=== PATIENT | male | born 1975 | race Two or more races ===

== ENCOUNTER 2018-08-19 16:52 | Emergency (ER) | payer OTHER ==
--- NOTE | 2018-08-19 18:50 | EDPHY ---
General Time Seen by Provider: 08/19/18 18:47 Narrative: CLINICAL IMPRESSION: Abdominal pain, nausea and vomiting ASSESSMENT/PLAN: Patient is a 42-year-old male with no significant medical history who presents to the Emergency Department with sudden-onset abdominal pain with associated nausea and vomiting. Patient is afebrile, he is very uncomfortable appearing however not toxic-appearing. An ECG was obtained and revealed normal sinus rhythm without evidence of acute ischemia, reviewed by myself and Dr. Rico. Troponin 0. His abdominal exam reveals a mildly distended abdomen, diffuse tenderness to palpation however most tender in the epigastrium and left mid quadrant. His vital signs were reviewed, he was mildly hypertensive on arrival however his heart rate was in normal limits without evidence of sepsis. Lactate was 2.3, suspect this is secondary to his nausea, vomiting and dehydration. CBC revealed a leukocytosis of 16,000. BMP with no evidence of metabolic abnormality or acute kidney injury. Lipase and hepatic panel grossly unremarkable without evidence of acute pancreatitis, acute hepatitis or acute hepatobiliary obstruction. CT abdomen and pelvis revealed a dilated appendix at 9 mm, appeared hyperemic with some periappendiceal stranding consistent with acute appendicitis. Dr. Saucedo with General surgery was consulted, he evaluated this patient in the emergency department and felt that his symptoms were more consistent with gastritis. The patient was given Pepcid and Toradol with improvement of his symptoms in the ED. Dr. Saucedo recommended discharge with close follow-up with him tomorrow. There were no findings to suggest other etiologies to include but not limited to ACS, acute cholecystitis, acute pancreatitis, diverticulitis, obstruction, perforation, mesenteric ischemia or kidney stone. In light of CT findings concerning for acute appendicitis very conservative return precautions were discussed with the patient, he is to return for development of fever, persistent nausea and vomiting, localizing or worsening abdominal pain or for any other concerning symptom. On repeat examination and prior to discharge the patient is much more comfortable appearing, his abdomen is soft with diffuse nonfocal tenderness to palpation, no evidence of a surgical abdomen. Patient verbalizes understanding and he is in agreement with this plan DIFFERENTIAL DX: Epigastric pain including but not limited to biliary colic, cholecystitis, peptic ulcer disease, pancreatitis, and gastroenteritis. ED COURSE: 1900: Case discussed with Dr. Rico 2116: Case discussed with Dr. Bautista, CT with findings suggestive of acute appendicitis. Appendix is dilated at 9 mm it is hyperemic with stranding. 2118: Case discussed with Dr. Saucedo, he will evaluate this patient. 2134: On repeat exam the patient is uncomfortable appearing, he is declining any pain medications at this time. His abdomen is soft. He is most tender in the left upper quadrant. 2139: Patient evaluated by Dr. Saucedo, he would like to trial Pepcid and Toradol. He will re-evaluate this patient prior to disposition. 2244: On repeat exam the patient reports feeling marginally better. Does not feel comfortable going home at this time. 2258: Dr. Saucedo would like to re-evaluate this patient prior to admitting CHIEF COMPLAINT: Abdominal pain, nausea and vomiting HPI: Patient is a 42-year-old male with no significant medical history who presents to the Emergency Department with a sudden-onset epigastric pain that has been constant since 929 this morning. Patient describes it as aching in nature, radiating to his left upper abdomen. His pain is unrelieved and is worsened with movement and palpation. He has not tried taking anything for pain. He has had associated nausea throughout the day, emesis x3. Denies any hematemesis. He denies any chest pain or shortness of breath. He denies any urinary symptoms to include dysuria, hematuria or frequency. He has no testicular pain or swelling. He denies any flank or back pain. His appetite has been low secondary to the nausea, denies any fevers or chills. There been no sick contacts, no recent antibiotic use. Had a normal bowel movement this morning, no melena or hematochezia. No history of abdominal surgeries. No history of similar episodes in the past. PMH: Denies Pertinent Past Surgical History: Right shoulder surgery. Family History: Not contributory Social History: Denies smoking, rare alcohol and denies illicit drug use. REVIEW OF SYSTEMS: All other systems negative Constitutional: Decreased appetite. No fever, no chills. Eyes: No discharge, vision change ENT: No sore throat, congestion, ear pain. Cardiovascular: No chest pain, no palpitations. Respiratory: No cough, no shortness of breath. Gastrointestinal: Nausea, vomiting, abdominal pain. No constipation or diarrhea. Genitourinary: No hematuria, dysuria, flank pain, testicular pain. Musculoskeletal: No back pain, joint swelling, joint pain, myalgias. Skin: No rashes, color change. Neurological: No headache, dizziness, weakness. PHYSICAL EXAM: General Appearance: Well-developed, uncomfortable appearing however not toxic- appearing. HENT: Normocephalic, atraumatic. Bilateral external ears are normal. Bilateral tympanic membranes are normal with pearly rudolph reflex. Nares are clear, mucosa is pink. Oropharynx is clear, oropharynx is mildly dry, uvula is midline. There is no tonsillar enlargement or exudate. The dentition is normal. Eyes: PERRLA, EOMI intact. Conjunctiva pink, no pallor or injection. Neck: Supple, nontender, no lymphadenopathy, no midline pain, FROM, no meningismus. Respiratory: There are no retractions, lungs are clear to auscultation. Cardiac: Regular rate and rhythm, no murmurs or gallops. Gastrointestinal: Patient's abdomen is mildly distended. There are no abdominal incisions noted. His abdomen is soft, he is he has generalized tenderness to palpation however he is most tender in the epigastrium and left lower mid quadrant on my exam with mild voluntary guarding. No masses or hernias are appreciated. Bowel sounds are present. Neurological: Alert and oriented x 3, CN 2-12 grossly intact, normal gait no ataxia, DTR's intact, normal sensation and strength Skin: Warm, dry, no rashes, no nodules on palpation. Musculoskeletal: Extremities are symmetrical, full range of motion, no tenderness, deformity, swelling, or erythema. Psychiatric: Patient is oriented X 3, there is no agitation. MEDICAL DECISION MAKING: Patient was seen independently. Secondary supervising physician at time of evaluation was Dr. Rico, he did not evaluate this patient. Diagnosis: Abdominal pain, nausea and vomiting. New, requires workup Summary: See Assessment and Plan for summary of ED visit Clinical lab tests: ordered / reviewed. Independent visualization of images, tracing, or specimens: Yes. Decision to obtain medical records or history from someone other than the patient: Yes, Review / Summarize previous medical records: Yes Discussed patient with another provider: Yes, Dr. Rico and Dr. Saucedo Patient Progress: Stable, discharged. - Diagnostics Imaging Results: Imaging Impressions Abdomen CT 08/19/18 18:59 Impression: 1. Mildly enlarged hyperemic appendix, with trace periappendiceal stranding, suspicious for acute appendicitis. 2. Equivocal fold thickening in the proximal small bowel, which can be seen with enteritis or underdistention, with limited bowel assessment due to lack of oral contrast. 3. Left adrenal myelolipoma. 4. Indeterminate hypodensity in the right kidney, [id number]. 5. Additional findings, as above. Findings called to the ED on August 19, 2018 at 2114. - History Smoking Status: Never smoked - Objective Vital Signs: Initial Vital Signs Temperature (C) 36.7 C 08/19/18 17:08 Heart Rate 78 08/19/18 17:08 Respiratory Rate 18 08/19/18 17:08 Blood Pressure 147/110 H 08/19/18 17:08 O2 Sat (%) 99 08/19/18 17:08 O2 Delivery Mode Room Air Allergies/Adverse Reactions: No Known Allergies Allergy (Verified 08/19/18 17:07) Home Medications: Medication Instructions Recorded Ondansetron Odt [Zofran Odt] 4 mg PO Q8 PRN #10 tab 08/19/18 Laboratory Results: Laboratory Results 08/19/18 19:01 08/19/18 19:01 08/19/18 08/19/18 08/19/18 21:38 19:34 19:25 WBC RBC Hgb POC Hgb 16.7 gm/dL gm/dL (13.7-17.5) Hct POC Hct 49 % % (40-51) MCV MCH MCHC RDW Plt Count MPV Neut % (Auto) Lymph % (Auto) Adair % (Auto) Eos % (Auto) Baso % (Auto) Nucleat RBC Rel Count Absolute Neuts (auto) Absolute Lymphs (auto) Absolute Monos (auto) Absolute Eos (auto) Absolute Basos (auto) Absolute Nucleated RBC Immature Gran % Immature Gran # POC Blood Source VENOUS Patient Temperature 36.7 DEGREES DEGREES POC VBG pH 7.44 H (7.31-7.42) POC VBG pCO2 34 mmHg L mmHg (40-44) POC VBG pO2 41 mmHg H mmHg (35-40) POC VBG HCO3 23 mEq/L mEq/L (22-26) POC VBG Total CO2 24 mEq/L mEq/L (21-27) POC VBG Base Excess -1.0 mEq/L mEq/L (-2.5-2.5) VBG Lactic Acid 1.6 mmol/L mmol/L (0.7-2.1) POC Mix VBG O2 Sat 79 % H % (65-75) POC Sodium 141 mEq/L mEq/L (135-145) Sodium POC Potassium 3.6 mEq/L mEq/L (3.3-5.0) Potassium POC Chloride 103 mEq/L mEq/L (97-110) Chloride Carbon Dioxide POC Total CO2 24 mEq/L mEq/L (22-31) Anion Gap POC BUN 18 mg/dL mg/dL (7-23) BUN Creatinine POC Creatinine 0.9 mg/dL mg/dL (0.7-1.3) Estimated GFR Glucose POC Glucose 144 mg/dL H mg/dL (70-100) POC Lactic Acid Frank 2.3 mmol/L H mmol/L (0.7-2.1) Calcium Total Bilirubin Conjugated Bilirubin Unconjugated Bilirubin AST ALT Alkaline Phosphatase POC Troponin I Total Protein Albumin Lipase 08/19/18 08/19/18 08/19/18 19:05 19:01 19:01 WBC 16.12 10^3/uL H 10^3/uL (3.80-9.50) RBC 5.94 10^6/uL 10^6/uL (4.40-6.38) Hgb 16.5 g/dL g/dL (13.7-17.5) POC Hgb Hct 49.1 % % (40.0-51.0) POC Hct MCV 82.7 fL fL (81.5-99.8) MCH 27.8 pg L pg (27.9-34.1) MCHC 33.6 g/dL g/dL (32.4-36.7) RDW 12.7 % % (11.5-15.2) Plt Count 264 10^3/uL 10^3/uL (150-400) MPV 11.5 fL fL (8.7-11.7) Neut % (Auto) 85.3 % H % (39.3-74.2) Lymph % (Auto) 9.8 % L % (15.0-45.0) Adair % (Auto) 4.1 % L % (4.5-13.0) Eos % (Auto) 0.1 % L % (0.6-7.6) Baso % (Auto) 0.3 % % (0.3-1.7) Nucleat RBC Rel Count 0.0 % % (0.0-0.2) Absolute Neuts (auto) 13.74 10^3/uL H 10^3/uL (1.70-6.50) Absolute Lymphs (auto) 1.58 10^3/uL 10^3/uL (1.00-3.00) Absolute Monos (auto) 0.66 10^3/uL 10^3/uL (0.30-0.80) Absolute Eos (auto) 0.02 10^3/uL L 10^3/uL (0.03-0.40) Absolute Basos (auto) 0.05 10^3/uL 10^3/uL (0.02-0.10) Absolute Nucleated RBC 0.00 10^3/uL 10^3/uL (0-0.01) Immature Gran % 0.4 % % (0.0-1.1) Immature Gran # 0.07 10^3/uL 10^3/uL (0.00-0.10) POC Blood Source Patient Temperature POC VBG pH POC VBG pCO2 POC VBG pO2 POC VBG HCO3 POC VBG Total CO2 POC VBG Base Excess VBG Lactic Acid POC Mix VBG O2 Sat POC Sodium Sodium 135 mEq/L mEq/L (135-145) POC Potassium Potassium 3.8 mEq/L mEq/L (3.5-5.2) POC Chloride Chloride 101 mEq/L mEq/L (97-110) Carbon Dioxide 23 mEq/l mEq/l (22-31) POC Total CO2 Anion Gap 11 mEq/L mEq/L (6-14) POC BUN BUN 19 mg/dL mg/dL (7-23) Creatinine 0.9 mg/dL mg/dL (0.7-1.3) POC Creatinine Estimated GFR > 60 Glucose 141 mg/dL H mg/dL (70-100) POC Glucose POC Lactic Acid Frank Calcium 9.7 mg/dL mg/dL (8.5-10.4) Total Bilirubin 0.6 mg/dL mg/dL (0.1-1.4) Conjugated Bilirubin 0.3 mg/dL mg/dL (0.0-0.5) Unconjugated Bilirubin 0.3 mg/dL mg/dL (0.0-1.1) AST 24 IU/L IU/L (17-59) ALT 57 IU/L IU/L (21-72) Alkaline Phosphatase 88 IU/L IU/L (38-126) POC Troponin I 0.00 ng/mL ng/mL (0.00-0.08) Total Protein 7.6 g/dL g/dL (6.3-8.2) Albumin 4.5 g/dL g/dL (3.5-5.0) Lipase 49 IU/L IU/L (23-300) Medications Given: Discontinued Medications Hydromorphone HCl (Dilaudid) 0.5 mg IVP EDNOW ONE Stop: 08/19/18 18:59 Last Admin: 08/19/18 19:09 Dose: 0.5 mg Sodium Chloride (Ns) 1,000 mls @ 0 mls/hr IV EDNOW ONE; Wide Open PRN Reason: Protocol Stop: 08/19/18 18:59 Last Admin: 08/19/18 19:09 Dose: 1,000 mls Sodium Chloride (Ns) 1,000 mls @ 0 mls/hr IV ONCE ONE PRN Reason: Wide Open Stop: 08/19/18 19:32 Last Admin: 08/19/18 19:38 Dose: 1,000 mls Famotidine/Sodium Chloride (Pepcid 20 Mg (Premix)) 50 mls @ 200 mls/hr IV EDNOW ONE Stop: 08/19/18 21:54 Last Admin: 08/19/18 22:42 Dose: 50 mls Ketorolac Tromethamine (Toradol) 30 mg IVP EDNOW ONE Stop: 08/19/18 21:41 Last Admin: 08/19/18 22:41 Dose: 30 mg Ondansetron HCl (Zofran Odt 4 Mg Prepack#2) 1 btl ABENA GARNER ONE Stop: 08/19/18 23:32 Last Admin: 08/19/18 23:51 Dose: 1 btl Point of Care Test Results: Chemistry 08/19/18 08/19/18 19:34 19:05 POC Sodium 141 mEq/L mEq/L (135-145) POC Potassium 3.6 mEq/L mEq/L (3.3-5.0) POC Chloride 103 mEq/L mEq/L (97-110) POC Total CO2 24 mEq/L mEq/L (22-31) POC BUN 18 mg/dL mg/dL (7-23) POC Creatinine 0.9 mg/dL mg/dL (0.7-1.3) POC Glucose 144 mg/dL H mg/dL (70-100) POC Troponin I 0.00 ng/mL ng/mL (0.00-0.08) Blood Gas/Lactic Acid-Arterial 08/19/18 19:25 POC Blood Source VENOUS Blood Gas/Lactic Acid-Venous 08/19/18 19:25 POC VBG pH 7.44 H (7.31-7.42) POC VBG pCO2 34 mmHg L mmHg (40-44) POC VBG pO2 41 mmHg H mmHg (35-40) POC VBG HCO3 23 mEq/L mEq/L (22-26) POC VBG Total CO2 24 mEq/L mEq/L (21-27) POC VBG Base Excess -1.0 mEq/L mEq/L (-2.5-2.5) POC Mix VBG O2 Sat 79 % H % (65-75) POC Lactic Acid Frank 2.3 mmol/L H mmol/L (0.7-2.1) ISTAT H&H 08/19/18 19:34 POC Hgb 16.7 gm/dL gm/dL (13.7-17.5) POC Hct 49 % % (40-51) Departure - Departure Disposition: Home, Routine, Self-Care Clinical Impression: Abdominal pain of multiple sites, Nausea and vomiting, Leukocytosis Condition: Good Instructions: Ondansetron (By mouth), Acute Abdominal Pain (ED) Additional Instructions: DISCHARGE INSTRUCTIONS FROM YOUR DOCTOR Thank you for visiting our emergency department today. Please keep in mind that discharge from the emergency department does not mean that there is nothing wrong - it simply means that we have not identified an emergency condition that requires further evaluation or treatment in the hospital. You should always plan to follow up with primary care for re-evaluation of your condition in the next 2-3 days. You were seen by Dr. Saucedo in the emergency department, he is a general surgeon. It is under my impression that he will be calling you to check an how you are doing tomorrow. If you have any worsening symptoms it is imperative that you return to the emergency department. Rest, push non-diuretic, non-caffeinated fluids, clear liquid diet, then a BRAT diet (bananas, rice, applesauce, toast), then slowly advance diet to normal. Attempt small frequent meals. Zofran as prescribed as needed for any recurrent nausea and/or vomiting. Schedule a follow-up appointment with your primary care physician in the next 1- 2 days for re-evaluation. Bring a copy of your test results with you to that appointment. Return for increased or unmanageable pain, new site or character of pain, flank pain, groin pain, pelvic pain, development of fever, chills, recurrent vomiting , vomiting blood or coffee grounds, diarrhea, constipation, bloody stools, black tarry stools, burning or pain with urination, bloody urine, inability to urinate, decreased urine output or other signs of dehydration, dizziness, weakness, fainting, difficulty breathing or swallowing, chest pain, or for any other new, worsening or worrisome symptoms. People present with illnesses and injuries in different ways, and it is always possible that we have missed something. You may always return for re-evaluation if symptoms worsen or if they are not improving or if you develop new/different symptoms. Again, thank you for choosing our emergency department. We hope that you feel better. Referrals: Sunny Saucedo MD [Medical Doctor] - 2-3 days, call for appt. [facility],. [Clinic] - 2-3 days, call for appt. Prescriptions: Ondansetron Odt [Zofran Odt] 4 mg PO Q8 PRN #10 tab PRN Reason: Nausea/Vomiting, Can'T Take Po
[2018-08-19] MEDS ORDERED: NS 1,000 ML IV ONE ×2 (18:58→19:31)
[2018-08-19] MEDS ORDERED: HYDROmorphONE/DILAUDID 2 MG/ML INJ IVP ONE (18:58)
[2018-08-19 19:11] LABS: PLATELET COUNT 264 10^3/uL (150-400)
[2018-08-19] MEDS ORDERED: IOPAMIDOL (ISOVUE-300) 100 ML BTL ONE (19:37)
[2018-08-19] MEDS ORDERED: KETOROLAC 30 MG/1 ML SDV IVP ONE (21:40)
[2018-08-19] MEDS ORDERED: FAMOTIDINE 20 MG/NACL 50 ML IV ONE (21:40)
[2018-08-19] MEDS ORDERED: ONDANSETRON 4MG PREPACK#2 BTL TAKEHOME ONE (23:31)
[2018-08-19 23:54] VITALS: BP 130/91
--- NOTE | 2018-08-20 07:47 | GCON ---
[f rep st] CONSULTATION DATE OF CONSULTATION: 08/19/2018 REASON FOR EVALUATION: Rule out appendicitis. REQUESTING PHYSICIAN: Telma Gan HISTORY OF PRESENT ILLNESS: 42-year-old, healthy, male, presents to the emergency room, 1-day history of sudden onset left upper quadrant abdominal pain with associated nausea and vomiting. He reports pain is to be burning in nature, similar to having a spicy chili meal. No antecedent history of similar complaints. No radiation of pain to his lower abdomen or right lower quadrant. No radiation of pain to his back or shoulder. Because of persistent symptoms , the patient presented to the emergency room. Laboratory imaging disclosed a white count of 16,000. CT imaging was subsequently performed, disclosing a mildly dilated hyperemic appendix. Surgery has been requested to rule out possibility for acute appendicitis. To my exam the patient reports the above- mentioned story. He specifically denies any right lower quadrant pain. He reports that his symptoms are improved after the receipt of the ED analgesics. PAST MEDICAL HISTORY: None. PAST SURGICAL HISTORY: None. MEDICATIONS: None. ALLERGIES: No known drug allergies. SOCIAL HISTORY: No alcohol, no tobacco. He is . He is present with his and family. FAMILY HISTORY: Noncontributory. REVIEW OF SYSTEMS: Notable for remote history of heartburn. Otherwise, negative 12-point review. PHYSICAL EXAMINATION: VITAL SIGNS: Temperature 36.7, blood pressure 147/110, heart rate 70, respirations 18. GENERAL: Patient is alert, appropriate, comfortable at present time. HEENT: Anicteric. No cervical or supraclavicular lymphadenopathy. HEART: Regular. LUNGS: Clear. ABDOMEN: Soft, mildly obese. Focal left upper quadrant tenderness without rebound. No succussion splash. No significant epigastric tenderness. No right upper quadrant tenderness. No Haddad sign. Specifically no right lower quadrant tenderness. No obturator sign. No psoas sign. No Rovsing sign. EXTREMITIES: Without edema. SKIN: Without rashes. LABORATORY DATA: White count 16,000, hemoglobin 17, platelets of 264. Electrolytes within reference range. Liver enzymes within reference range. Lipase 49. CT images were directly reviewed on PACS, acknowledged mildly enlarged hyperemic appendix with a mild proximal small bowel thickening with a fatty left adrenal nodule and subcentimeter right renal hypodensity is noted. IMPRESSION: Acute onset left upper quadrant pain with leukocytosis and abnormal CT findings as above. Clinical exam appears more consistent with acute gastroenteritis rather than acute appendicitis. RECOMMEND: ED analgesics, fluid resuscitation and acid torch straightener and heater trial. Continued serial abdominal exams. If pain continues to worsen or clinical exam becomes more suspect for acute appendicitis, consideration for diagnostic laparoscopy with appendectomy will be entertained at that time. These findings and recommendations were discussed with Ailin Gan ED PA on-call. All family questions were entertained. DISPOSITION: To be determined pending clinical outcome with above measures. /[id number]/MODL MTDD
--- NOTE | 2018-08-25 14:13 | CPEKG ---
Test Reason : OPEN Blood Pressure : / mmHG Vent. Rate : 090 BPM Atrial Rate : 090 BPM P-R Int : 138 ms QRS Dur : 079 ms QT Int : 352 ms P-R-T Axes : 053 027 006 degrees QTc Int : 431 ms Sinus rhythm Confirmed by Roxanne Rico ([id number]) on 08/25/2018 2:13:03 PM Referred By: Roxanne Rico Confirmed By:Roxanne Rico
== END 2018-08-19 23:54 | disposition home or self-care (01) ==
DX: R10.9 Unspecified abdominal pain (principal); R11.2 Nausea with vomiting, unspecified; D72.829 Elevated white blood cell count, unspecified
CPT/HCPCS: 82435-PO; 82565-PO; 82947-PO; 83605-ER; 84132-PO; 84295-PO; 84484-ER; 84520-PO; 85014-ER; 96365; J1170; J1885; Q9967